=== PATIENT | female | born 1995 | race Two or more races ===

== ENCOUNTER 2022-03-10 20:41 | Emergency (ER) | payer OTHER ==
[~2022-03-10] VITALS: Ht 152.4 cm; Wt 68.0 kg
[2022-03-10] MEDS ORDERED: CLEOCIN HCL300 MG PO (22:06)
== END 2022-03-10 22:35 | disposition home or self-care (01) ==
LOC: ER 20:41
DX: L03.818 Cellulitis of other sites (principal); B95.61 Methicillin susceptible Staphylococcus aureus infection as the cause of diseases classified elsewhere; B96.89 Other specified bacterial agents as the cause of diseases classified elsewhere; L98.8 Other specified disorders of the skin and subcutaneous tissue; Z88.6 Allergy status to analgesic agent

== ENCOUNTER 2022-03-25 12:17 | Emergency (ER) | payer OTHER ==
[~2022-03-25] VITALS: Ht 152.4 cm; Wt 68.0 kg
[~2022-03-25 12:17] MED LIST: CLEOCIN HCL300 MG PO
== END 2022-03-25 16:42 | disposition home or self-care (01) ==
LOC: ER 12:17
DX: F41.9 Anxiety disorder, unspecified (principal); Z88.6 Allergy status to analgesic agent

== ENCOUNTER → 2022-04-16 | Emergency (ER) | payer OTHER ==
[~2022-04-16] VITALS: Ht 152.4 cm; Wt 68.0 kg
== END | disposition home or self-care (01) ==
LOC: ER 06:44
DX: R10.31 Right lower quadrant pain (principal); N21.1 Calculus in urethra; Z88.6 Allergy status to analgesic agent